=== PATIENT | female | born 1975 | race Caucasian/White ===

== ENCOUNTER 2019-08-19 12:37 | Emergency (ER) | payer OTHER, SELFPAY ==
[2019-08-19 12:56] VITALS: BP 113/58; PULSE 68; RESP 16; TEMP 36.4; O2SAT 99
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
== END 2019-08-19 13:46 | disposition home or self-care (01) ==
PROVIDERS: Emergency Provider Nurse Practitioner; PCP Family Medicine
DX: M54.5 Low back pain (principal); M06.9 Rheumatoid arthritis, unspecified; E89.0 Postprocedural hypothyroidism; Z85.850 Personal history of malignant neoplasm of thyroid; F17.200 Nicotine dependence, unspecified, uncomplicated
CPT/HCPCS: 99213; G0463

== ENCOUNTER 2020-03-10 12:07 | Emergency (ER) | payer BC, SELFPAY ==
--- NOTE | 2020-03-10 12:15 | ED.GENADULT ---
HPI - General Adult General Chief complaint: Chest Pain Stated complaint: chest pain Time Seen by Provider: 03/10/20 12:24 Source: patient Mode of arrival: ambulatory Limitations: no limitations History of Present Illness HPI narrative: 44-year-old female patient presents to the [facility] with complaints of left-sided chest pain that radiates to the left shoulder and wraps to the middle of the back. Patient states this chest pain is been going on for about 3 or 4 weeks now. Patient states she is also had some issues with palpitations here and there and did see her primary doctor about 3 weeks ago for the palpitations. Patient states at that time the doctor told her she had mitral valve prolapse. Patient states she did not get any further work-up and denies getting any type of echo or anything else at that time. Patient has had a stroke before in the past but on no current blood thinners. 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 Patient states she has been having a lot more stress recently. Patient states that her chest pain at this time is about a 2 out of 10 and feels more of an aching. Patient states she is also had a little bit of diarrhea but denies any nausea vomiting. Denies any fevers, body aches or chills. Patient denies any coughing or shortness of breath. Patient is states that this time she has been feeling more fatigued recently and states that time she feels like she is going to pass out. Related Data Allergies Allergy/AdvReac Type Severity Reaction Status Date / Time ciprofloxacin Allergy Unknown neurologic Verified 02/11/20 13:07 sulfamethizole Allergy Unknown Verified 02/11/20 13:07 Review of Systems Review of Systems: Narrative: CONSTITUTIONAL: Denies fever, chills, or sweats. EYES: Denies visual changes, redness, or discharge. ENT: Denies rhinorrhea, congestion, sore throat, or otalgia. CARDIOVASCULAR: Positive left-sided chest pain, positive palpitations, denies edema. RESPIRATORY: Denies cough or dyspnea. GASTROINTESTINAL: Denies abdominal pain, nausea, vomiting, positive diarrhea. GENITOURINARY: Denies dysuria or hematuria. SKIN: Denies rash or itching. MUSCULOSKELETAL: Denies back pain, joint pain, or myalgia. NEUROLOGIC: Denies headache, numbness, or weakness. PSYCHIATRIC: Denies anxiety or depression. PMFSH Past Medical History Medical History (Updated 03/10/20 @ 12:41 by GEM Rothman) Anxiety disorder Arthralgia Asthma Back pain Bronchitis Cancer Liver/thyroid/uterine Chronic insomnia CVA (cerebral vascular accident) Depression Endocrine disorder Thyroid mass Eustachian salpingitis, acute Gastrointestinal disorder Mass on liver, thyroid Heart murmur Hypoglycemia Primary generalized (osteo)arthritis Viral meningitis Surgical History Surgical History (Updated 03/10/20 @ 12:19 by GEM Rothman) H/O resection of liver H/O thyroidectomy H/O: hysterectomy Family History Family History Mother Patient's mother is in good health Father Patient's father is Grandparent Carcinoma of colon Family history of coronary artery disease, Onset Age: 71 Other Cerebrovascular accident Hypertension Social History Social History Social History: Smoking status: Former smoker Tobacco type: cigarettes Second hand tobacco smoke exposure: Yes Smoking end date: 10/25/19 Alcohol intake: current Substance use: never Substance use type: does not use Gender identity (if verbalized by the patient): Female Comments At the time of my signature I agree with nursing past medical history, surgical, social, and family history. There is no relevant family history pertinent to the presenting complaint. Exam Narrative: Exam Narrative: GENERAL: Well-appearing, well-nourished, and in no acu
[2020-03-10 12:17] VITALS: BP 132/79; PULSE 76; RESP 16; TEMP 36.9; O2SAT 98
--- NOTE | 2020-03-10 12:19 | ECG_ITS ---
Measurements Intervals [place] Rate: 65 P: 142 NE: 140 QRS: 204 QRSD: 105 T: 154 QT: 393 QTc: 409 Interpretive Statements SINUS RHYTHM LIMB LEAD REVERSAL DELAYED PRECORDIAL R/S TRANSITION BORDERLINE ECG Electronically Signed On 03-10-2020 13:08:05 CDT by Rafa Grossman D.O.
== END 2020-03-10 12:37 | disposition short-term general hospital (02) ==
PROVIDERS: Emergency Provider Nurse Practitioner Family; PCP Family Medicine
DX: R07.89 Other chest pain (principal); Z87.891 Personal history of nicotine dependence; Z86.73 Personal history of transient ischemic attack (TIA), and cerebral infarction without residual deficits; R01.1 Cardiac murmur, unspecified; J45.909 Unspecified asthma, uncomplicated; F41.9 Anxiety disorder, unspecified; F32.9 Major depressive disorder, single episode, unspecified; Z85.850 Personal history of malignant neoplasm of thyroid; Z85.05 Personal history of malignant neoplasm of liver; Z85.42 Personal history of malignant neoplasm of other parts of uterus
CPT/HCPCS: 93005; 99213; G0463

== ENCOUNTER 2020-03-10 12:52 | Observation (INO) | payer BC, SELFPAY ==
[2020-03-10] VITALS (9 sets, daily range): BP systolic 96–138; BP diastolic 60–82; PULSE 47–77; RESP 16–20; TEMP 36.4–36.7; O2SAT 96–100; BMI 32.9
--- NOTE | ~2020-03-10 | XR_ITS ---
EXAMINATION: XR chest 2V EXAM DATE: 03/10/2020 13:37 INDICATION: Mid sternal chest pain radiating to back for one week. TECHNIQUE: Frontal and lateral projections of the chest obtained and reviewed. Comparison is made to prior examination from 10/07/2018. FINDINGS: The lungs are clear. There are no pleural effusions. The cardiomediastinal silhouette is within normal limits. There is no pneumothorax suspected. The bones and soft tissues are unremarkab le. IMPRESSION: No acute cardiopulmonary findings. Reviewed, dictated and finalized at location A.
--- NOTE | 2020-03-10 13:09 | ECG_ITS ---
Measurements Intervals [place] Rate: 71 P: 53 FL: 150 QRS: -9 QRSD: 106 T: 47 QT: 400 QTc: 436 Interpretive Statements SINUS RHYTHM POSSIBLE LEFT ATRIAL ENLARGEMENT INCOMPLETE RIGHT BUNDLE BRANCH BLOCK POSSIBLE LEFT VENTRICULAR HYPERTROPHY DELAYED PRECORDIAL R/S TRANSITION MINIMAL Q WAVES- HIGH LATERAL LEADS BASELINE WANDER- V3-V6 BORDERLINE ECG Electronically Signed On 03-10-2020 13:37:59 CDT by Rafa Grossman D.O.
[2020-03-10 13:34] LABS: Basophils Percent Auto 0.2 % (0.2-1.2); Eosinophils Absolute Auto 0.1 K/mm3 (0-0.3); Eosinophils Percent Auto 1.9 % (0-4.4); Hematocrit 39.9 % (37.0-47.0); Hemoglobin 12.8 g/dL (12.0-15.0); Immature Granulocyte Absolute 0.02 K/mm3 (0.00-0.031); Immature Granulocyte Percent A 0.4 % (0-0.5); Lymphocytes Absolute Auto 2.24 K/mm3 (0.9-3.2); Lymphocytes Percent Auto 43.4 % (18.3-44.2); Mean Corpuscular HGB Conc 32.1 g/dl (32-36); Mean Corpuscular Hemoglobin 26.7 pg (26-34); Mean Corpuscular Volume 83.1 fl (80-100); Mean Platelet Volume 10.9 fl (7.4-10.4); Monocytes Absolute Auto 0.3 K/mm3 (0.1-0.6); Monocytes Percent Auto 6.4 % (2.6-8.5); Neutrophils Absolute Auto 2.5 K/mm3 (1.3-6.7); Neutrophils Percent Auto 47.7 % (45.5-73.1); Platelet Count Result 208 k/mm3 (150-375); Red Cell Distribution Width 14.9 % (11.5-14.5); White Blood Count 5.2 K/mm3 (4.5-10.0)
[2020-03-10 13:41] LABS: INR 1.1; Prothrombin Time 13.4 Seconds (11.1-14.7)
[2020-03-10 13:42] LABS: Partial Thromboplastin Time 27.4 SECONDS (22.3-36.8); Potassium 4.1 mmol/L (3.4-5.0)
[2020-03-10 13:50] LABS: Anion Gap 7 mmol/L (8-16); Blood Urea Nitrogen 7 mg/dL (7-17); Calcium 9.3 mg/dL (8.4-10.2); Carbon Dioxide 24 mmol/L (22-30); Chloride 109 mmol/L (98-107); Estimated CRCL calculation 115 ml/min; Estimated Glomerular Filt Rate > 60; Glucose 58 mg/dL (65-105); Sodium 140 mmol/L (137-145)
[2020-03-10 13:54] LABS: Troponin I < 0.012 ng/mL (0.000-0.034)
[2020-03-10 14:10] LABS: Glucose Point of Care 80 (65-105)
[2020-03-10] MEDS: ASPIRIN 81 MG CHEWABLE TABLET 324 MG PO (16:01)
--- NOTE | 2020-03-10 16:38 | ECG_ITS ---
Measurements Intervals [place] Rate: 61 P: 38 NV: 148 QRS: -7 QRSD: 110 T: 29 QT: 442 QTc: 448 Interpretive Statements SINUS RHYTHM DELAYED PRECORDIAL R/S TRANSITION VOLTAGE CRITERIA FOR LVH MINIMAL Q WAVES- HIGH LATERAL LEADS BORDERLINE ECG Electronically Signed On 03-10-2020 17:20:42 CDT by Rafa Grossman D.O.
--- NOTE | 2020-03-10 16:45 | ED.CHESTPAIN ---
HPI - Chest Pain General Chief Complaint: Chest Pain Stated Complaint: CP, from Urgent care Time Seen by Provider: 03/10/20 16:15 Source: patient Mode of arrival: ambulatory Limitations: no limitations History of Present Illness HPI narrative: This patient is a 44 year old female who presents for evaluation of left chest pain. She reports intermittently having left chest pain for 3 weeks. This pain is left axilla and radiates to left shoulder and back. This pain seems worse with stress and anxiety. She als reports having palpitations and fatigue. She also has some sob. She was evaluated by her PCP for her chest pain and she was diagnosed with mitral valve prolapse. She has continued to have fatigue so she came to ER. She also reports intermittent hypoglycemia. She is not a diabetic and she has not taken any medications. Related Data Home Medications Medication Instructions Recorded Confirmed fluoxetine 20 mg PO DAILY 03/10/20 03/10/20 melatonin 10 mg PO HS PRN 03/10/20 03/10/20 quetiapine [Seroquel] 100 mg PO DAILY 03/10/20 03/10/20 Allergies Allergy/AdvReac Type Severity Reaction Status Date / Time No Known Allergies Allergy Verified 03/10/20 15:59 Review of Systems Review of Systems: All systems reviewed & are unremarkable except as noted in HPI and below Constitutional: Constitutional: Denies chills, Reports fatigue and Denies fever(s) Cardiovascular: Cardiovascular: Reports chest pain Respiratory: Respiratory: Denies cough and Reports dyspnea Musculoskeletal: Musculoskeletal: Reports back pain PMFSH Past Medical History Medical History (Updated 03/11/20 @ 08:11 by Italia Lai MD) Anxiety disorder Arthralgia Asthma Back pain Bronchitis Cancer Liver/thyroid/uterine Chronic insomnia CVA (cerebral vascular accident) Depression Endocrine disorder Thyroid mass Eustachian salpingitis, acute Gastrointestinal disorder Mass on liver, thyroid Heart murmur Hypoglycemia Primary generalized (osteo)arthritis Viral meningitis Surgical History Surgical History (Updated 03/10/20 @ 12:19 by GEM Rothman) H/O resection of liver H/O thyroidectomy H/O: hysterectomy Social History Social History Social History: Smoking packs per day: 1 Smoking cigarettes per day: 20.0 Years smoked: 30 Smoking pack-years: 30.00 Smoking status: Former smoker Tobacco type: cigarettes Second hand tobacco smoke exposure: Yes Smoking end date: 10/25/19 Alcohol intake: current Substance use: never Substance use type: does not use Gender identity (if verbalized by the patient): Female Spiritual care concerns: No Exam Narrative: Exam Narrative: GENERAL: Well-appearing, well-nourished, and in no acute distress. HEAD: Normocephalic, atraumatic EYES: PERRLA and EOMI, conjunctiva clear without discharge EARS: TM's clear bilaterally without erythema or dullness NOSE: Nares clear, no rhinorrhea or epistaxis THROAT:Mucous membranes moist, Oropharynx normal without erythema, exudate, peritonsillar swelling or fluctuance NECK: Supple, without lymphadenopathy or mass RESPIRATORY: No respiratory distress, Airway patent, Respirations non-labored, Clear to auscultation without rales, rhonchi or wheeze HEART: Regular rate and rhythm. No murmur heard. Normal peripheral pulses. ABDOMEN: Soft, nontender, nondistended, normal active bowel sounds. No masses. No rebound or guarding, No organomegaly. EXTREMITIES: No edema, normal strength with full range of motion. SKIN: Warm, dry, normal color without rash NEURO: Alert and oriented x3. CN 2-12 grossly intact. No focal deficits. PSYCH: Normal mood and affect. Course Reevaluation(s) Reevaluation #1: I Discussed case with Dr. Stout who accepts to chest pain center. Date: 03/10/20 Time: 17:53 Vital Signs Vital signs: Vital Signs Temperature 97.6 F 09
[2020-03-10 16:46] LABS: Troponin I < 0.012 ng/mL (0.000-0.034)
[2020-03-10 17:19] LABS: D Dimer 0.39 ug/mL (<0.48)
[2020-03-10] MEDS: KETOROLAC 30 MG/ML VIAL (*BKC) IV PUSH (17:32)
[2020-03-10 19:21] LABS: Glucose Point of Care 72 (65-105)
[2020-03-10 20:02] LABS: Troponin I < 0.012 ng/mL (0.000-0.034)
--- NOTE | 2020-03-10 20:05 | ADMGEN ---
This patient, Shira Mortensen, was admitted to IMU Room 200-01. Patient/family oriented to hospital policies and general routines including ID bracelet, bed and alarms, visiting hours, pain management, procedures, bathroom and other care routines, personal items, smoking policy, room service/diet, and visiting hours. Valuables list has been completed. Information on how to activate the Rapid Response Team has been discussed. Patient/Family are encouraged to report perceived risks to care and to ask questions if they do not understand what they are told or what they should do. Report from [facility] arrived at [address] [place] [address] 03/10/2020
--- NOTE | 2020-03-10 22:42 | PC.NURSE ---
Pt requested a change in attending from [facility] to [facility]. I called Dr. Husain and he accepted pt at approx [phone]. I then called [facility] and notified admitting of new provider so the chart could reflect the changes.
[2020-03-10] MEDS: clonazePAM 0.5 MG TABLET PO (23:33)
[2020-03-10] MEDS: traMADol HCL 50 MG TABLET PO (23:34)
[2020-03-10] MEDS: MELOXICAM 7.5 MG TABLET 15 MG PO (23:34)
[2020-03-10] MEDS: QUEtiapine FUMARATE 100 MG TABLET PO (23:34)
[2020-03-10] MEDS: FLUoxetine HCL 20 MG CAPSULE PO (23:34)
[2020-03-10] MEDS: MELATONIN 5 MG TABLET 10 MG PO (23:35)
[2020-03-10 23:53] LABS: Free T4 Free Thyroxine Reflex 0.99 ng/dL (0.78-2.19)
[2020-03-11] VITALS (8 sets, daily range): BP systolic 102–152; BP diastolic 56–74; PULSE 53–73; RESP 14–18; TEMP 36.1–36.7; O2SAT 98–100
--- NOTE | 2020-03-11 | ECHO_ITS ---
Patient Info Name: Shira Mortensen Age: 44 years : 1975 Gender: Female Ht: 67 in Wt: 210 lbs BSA: 2.16 m2 HR: 50 bpm BP: 120 / 56 mmHg Heart Rhythm: Bradycardia Technical Quality: Good Exam Date: 03/11/2020 11:21 AM Exam Location: [facility] Patient Status: Inpatient Admit Date: 03/10/2020 Staff Ordering Physician: Santos Bacon MD Receptionist Airline Lounge: Vahid Hurtado RDCS Attending Provider: Julio Carrera MD Exam Type: CA echo doppler color flow Study Info Indications I34.1 - Nonrheumatic mitral (valve) prolapse R07.9 - Chest pain, unspecified Complete two-dimensional, color flow and Doppler transthoracic echocardiogram is performed. History/Risk Factors Chest pain; MVP(?), palpitations, murmur. Summary 1. Complete two-dimensional, color flow and Doppler transthoracic echocardiogram is performed. 2. Normal left ventricular size and thickness with good contractility of all segments. Visual estimate of the ejection fraction is 60-65%. No segmental wall motion abnormalities. Normal diastolic function. 3. Left atrial chamber dimension is mildly enlarged. 4. There is trace mitral valve regurgitation with no evidence of mitral valve prolapse. 5. No pulmonary hypertension, estimated pulmonary arterial systolic pressure is 24 mmHg. 6. Normal sinus rhythm. Left Ventricle Left ventricular chamber dimension is normal. Left ventricular systolic function is normal, estimated at 60-65%. There is no increased left ventricular wall thickness. Left ventricular septal wall motion is normal. The left ventricular diastolic function is normal. Right Ventricle Right ventricular chamber dimension is normal. Right ventricular systolic function is normal. Left Atria Left atrial chamber dimension is mildly enlarged. Right Atria Right atrial chamber dimension is normal. Aortic Valve The aortic valve is trileaflet. There is no aortic valve sclerosis. There is no aortic valve stenosis. There is no aortic valve regurgitation. Pulmonic Valve The pulmonic valve is normal. There is no pulmonic valve stenosis. There is no pulmonic regurgitation. Mitral Valve The mitral valve has normal leaflets. There is no mitral valve stenosis. There is trace mitral valve regurgitation with no evidence of mitral valve prolapse. Tricuspid Valve The tricuspid valve leaflets are normal. There is no significant tricuspid valve stenosis. There is trace tricuspid valve regurgitation. No pulmonary hypertension, estimated pulmonary arterial systolic pressure is 24 mmHg. Pericardium/Pleural The pericardium appears normal. There is no pericardial effusion. Inferior Vena Cava Normal inferior vena cava with >50% collapse upon inspiration consistent with Empty right atrial pressure, 5 mmHg. Aorta The aortic root size at the sinus of Valsalva is normal. The prox ascending aorta size is normal. Left Ventricular Outflow Tract Name Value Normal LVOT 2D LVOT Diameter 2.1 cm LVOT Doppler LVOT Peak Gradient 3 mmHg LVOT Mean Gradient 2 mmHg
[2020-03-11] MEDS: LEVOTHYROXINE SODIUM 112 MCG TABLET PO (05:50)
--- NOTE | 2020-03-11 08:21 | PM.IMHP ---
H&P: HPI History of Present Illness Date/Time: 03/11/20 08:21 Chief complaint: left chest pain Narrative: Date of service-03/11/2020 Chief complaint: Chest pain; palpitations HPI: Shira Mortensen is a 44 year old female with past medical history of anxiety/depression, CA thyroid status post thyroidectomy,? CA liver, Ca uterus status post surgeries; history of tobacco abuse. Patient was admitted to the hospital with complaints of chest discomfort and palpitations. She states that she started having palpitations about 6 months ago. She would get several episodes of transient palpitations throughout the day without associated symptoms initially. For last 3-4 weeks, patient states that she has been experiencing episodes of dizziness without syncope; tingling sensation in the arms, decreased appetite and fatigue. These symptoms are happening every other day on average. About a week ago, patient states that started having left inframammary discomfort which she describes as squeezing sensation with radiation to the back in a bandlike fashion. She states that symptoms started after a long day at work. She works as an ER nurse. The symptoms would get worse with deep inspiration. Her symptoms lasted for several hours. She has been also experiencing dyspnea on exertion, unable to quantify. Patient denies any known prior cardiac history. She states that she was seen by primary care physician and was diagnosed with what she describes as mitral valve prolapse. She does not recall having any echocardiogram done in the past. Patient was family history of fatal MA in his father when he was in 30s. Patient used to be a smoker, quit tobacco about 6 months ago. EKG on this admission which I personally evaluated showed sinus rhythm, no acute ST segment abnormality. Serial EKG did not show any significant evolving changes. Serial troponins are negative. D-dimer is unremarkable. Chest x-ray is unremarkable. TSH is low at 0.410, free T4 is normal at 0.99. Review of Systems Review of Systems: Narrative: General: Negative for fever, chills, fatigue Psychological: Positive for anxiety, depression Ophthalmic: negative for loss of vision ENT: Negative for epistaxis, headaches Allergy and immunology: Negative for hives, nasal congestion Hematologic and lymphatic: Negative for overt bleeding problems Endocrine: Negative for hot flashes, palpitations Respiratory: Negative for cough, hemoptysis Cardiovascular: Positive for chest pain, shortness of breath, mild leg swelling, palpitations, dizziness, negative for syncope Gastrointestinal: Negative for abdominal pain, nausea, vomiting, positive for decreased appetite Musculoskeletal: Negative for myalgia, joint pains Neurological: Negative for weakness Dermatological: Negative for rash, skin discoloration PMFSH Past Medical History Medical History Anxiety disorder Arthralgia Asthma Back pain Bronchitis Cancer Liver/thyroid/uterine Chronic insomnia CVA (cerebral vascular accident) Depression Endocrine disorder Thyroid mass Eustachian salpingitis, acute Gastrointestinal disorder Mass on liver, thyroid Heart murmur Hypoglycemia Primary generalized (osteo)arthritis Viral meningitis Surgical History Surgical History H/O resection of liver H/O thyroidectomy H/O: hysterectomy Family History Family History Mother Patient's mother is in good health Father Patient's father is Grandparent Carcinoma of colon Family history of coronary artery disease, Onset Age: 71 Other Cerebrovascular accident Hypertension Social History Social History Social History: Smoking packs per day: 1 Smoking cigarettes per day: 20.0 Years smoked: 30 Smoking pa
== END 2020-03-11 15:05 | disposition home or self-care (01) ==
LOC: ANHED 18:03 → ANHIMU 18:23
PROVIDERS: Admitting Provider Specialist; Emergency Provider General Practice; PCP Family Medicine; Visit Provider Internal Medicine Cardiovascular Disease
DX: R07.9 Chest pain, unspecified (principal); R00.2 Palpitations; M25.512 Pain in left shoulder; Z86.73 Personal history of transient ischemic attack (TIA), and cerebral infarction without residual deficits; M15.0 Primary generalized (osteo)arthritis; J45.909 Unspecified asthma, uncomplicated; F41.9 Anxiety disorder, unspecified; Z87.891 Personal history of nicotine dependence
CPT/HCPCS: 36415; 71046; 80048; 82948; 84439; 84443; 84480; 84484; 85025; 85380; 85610; 85730; 93005; 93306; 96374; 99285; A9270; G0378; G0379; J1885

== ENCOUNTER 2020-06-11 11:48 | Outpatient (CLI) | payer BC, SELFPAY ==
[2020-06-11 12:20] LABS: Rheumatoid Factor < 8.6 IU/ML (<12)
[2020-06-11 12:32] LABS: Erythrocyte Sedimentation Rate 16 mm/hr (0-20)
[2020-06-11 12:48] LABS: Thyroid Stimulating Hormone 0.187 uIU/mL (0.465-4.680)
[2020-06-11 12:53] LABS: Free T4 Free Thyroxine 0.96 ng/mL (0.78-2.19)
[2020-06-15 10:29] LABS: Anti Cyclic Citrullinated Pept <16 Units (<20)
== END 2020-06-11 11:49 | disposition home or self-care (01) ==
LOC: ANHLAB 11:50
PROVIDERS: PCP Family Medicine; Visit Provider Physician Assistant
DX: Z01.84 Encounter for antibody response examination (principal); E03.9 Hypothyroidism, unspecified; M25.50 Pain in unspecified joint
CPT/HCPCS: 36415; 84439; 84443; 85652; 86200; 86430

== ENCOUNTER 2020-10-13 11:20 | Outpatient (CLI) | payer BC, SELFPAY ==
[2020-10-13 12:51] LABS: Total Triiodothyronine (T3) 0.89 NG/ML (0.97-1.69)
[2020-10-13 13:05] LABS: Free T4 Free Thyroxine 0.78 ng/mL (0.78-2.19)
== END 2020-10-13 11:21 | disposition home or self-care (01) ==
PROVIDERS: PCP Family Medicine; Visit Provider Physician Assistant
DX: E03.9 Hypothyroidism, unspecified (principal)
CPT/HCPCS: 36415; 84439; 84443; 84480

== ENCOUNTER 2021-01-02 10:44 | Outpatient (CLI) | payer BC, SELFPAY ==
[2021-01-02 13:33] LABS: Anion Gap 9 mmol/L (8-16); Blood Urea Nitrogen 12 mg/dL (7-17); Calcium 9.9 mg/dL (8.4-10.2); Carbon Dioxide 26 mmol/L (22-30); Chloride 105 mmol/L (98-107); Estimated Glomerular Filt Rate > 60; Glucose 84 mg/dL (65-105); Potassium 4.7 mmol/L (3.4-5.0); Sodium 140 mmol/L (137-145)
[2021-01-02 14:06] LABS: Hemoglobin A1C 5.5 % (<5.7)
== END 2021-01-02 10:45 | disposition home or self-care (01) ==
LOC: ANHLAB 10:45
PROVIDERS: PCP Family Medicine; Visit Provider Family Medicine
DX: R73.09 Other abnormal glucose (principal); Z85.850 Personal history of malignant neoplasm of thyroid
CPT/HCPCS: 36415; 80048; 83036; 83519

== ENCOUNTER 2021-09-14 11:58 | Outpatient (CLI) | payer BC, SELFPAY ==
[2021-09-14 12:22] LABS: Add Urine Microscopic? NO; Appearance Urine Clear (Clear); Bilirubin Urine Negative (Negative); Blood Urine Negative (Negative); Color Urine Straw (Yellow); Glucose Urine UA Negative (Negative); Ketones Urine Negative (Negative); Leukocyte Esterase Ur Negative LEU/UL (Negative); Nitrate Urine Negative (Negative); Protein Urine Negative (Negative); Specific Grav Ur 1.005 (1.001-1.035); Urobilinogen Urine Negative mg/dL (<2.0)
== END 2021-09-14 11:59 | disposition home or self-care (01) ==
LOC: ANHLAB 12:02
PROVIDERS: PCP Family Medicine; Visit Provider Nurse Practitioner Gerontology
DX: R30.0 Dysuria (principal)
CPT/HCPCS: 81003

== ENCOUNTER 2021-09-15 12:48 | Emergency (ER) | payer BC, SELFPAY ==
--- NOTE | ~2021-09-15 | CT_ITS ---
EXAMINATION: CT abdomen pelvis w con DATE: 09/15/2021 13:49 INDICATION: Generalized abdominal pain. Bilateral flank pain and dysuria. TECHNIQUE: Computed tomography (CT) of the abdomen and pelvis was performed with 100 mL Omnipaque-350 intravenous contrast. Automated exposure control and iterative reconstruction technique were employe d. The dose-length product was 1036.07 mGy-cm. COMPARISON: 11/29/2015 FINDINGS: Lung bases are clear. Heart size is normal. No pericardial or pleural effusion. Multiple subphrenic s urgical clips along the anterior dome of the liver. 1.2 cm hepatic cyst. Gallbladder, pancreas, splee n, bilateral adrenal glands and left kidney are normal. A couple subcentimeter likely cysts in the ri ght kidney. Small calcified appendicolith within the midportion of the normal appendix with no periap pendiceal inflammatory stranding to suggest acute appendicitis. Small bowel is normal. There is wall thickening throughout the sigmoid colon consistent with a distal colitis. No pneumatosis. A few sigmo id diverticula without adjacent inflammatory stranding to suggest diverticulitis. Minimal ascites in the pelvis. No abscess or free intraperitoneal gas. Bladder and bilateral adnexa are unremarkable. Th e uterus is not identified and has likely been surgically resected. No pathologically enlarged abdomi nal or pelvic lymphadenopathy. Lower lumbar spondylosis with severe disc height loss at L5-S1 and sev ere bilateral facet osteoarthritis at L4-L5 and L5-S1. IMPRESSION: 1. Wall thickening throughout the sigmoid colon consistent with colitis which could be infectious, in flammatory or less likely ischemic in etiology. Reviewed, dictated and finalized at location A. IMPRESSION: 1. Wall thickening throughout the sigmoid colon consistent with colitis which c ould be infectious, inflammatory or less likely ischemic in etiology.
[2021-09-15 12:52] VITALS: BP 144/81; PULSE 84; RESP 14; TEMP 36.4; O2SAT 100
[2021-09-15 13:15] LABS: Basophils Percent Auto 0.1 % (0.2-1.2); Eosinophils Absolute Auto 0.1 K/mm3 (0-0.3); Hematocrit 41.1 % (37.0-47.0); Hemoglobin 12.7 g/dL (12.0-15.0); Immature Granulocyte Absolute 0.04 K/mm3 (0.00-0.031); Immature Granulocyte Percent A 0.6 % (0-0.5); Lymphocytes Absolute Auto 2.52 K/mm3 (0.9-3.2); Lymphocytes Percent Auto 35.8 % (18.3-44.2); Mean Corpuscular HGB Conc 30.9 g/dl (32-36); Mean Corpuscular Hemoglobin 27.1 pg (26-34); Mean Corpuscular Volume 87.8 fl (80-100); Mean Platelet Volume 11.4 fl (7.4-10.4); Monocytes Absolute Auto 0.4 K/mm3 (0.1-0.6); Monocytes Percent Auto 5.4 % (2.6-8.5); Neutrophils Percent Auto 56.1 % (45.5-73.1); Platelet Count Result 204 k/mm3 (150-375); Red Blood Count 4.68 M/mm3 (4.2-5.4); Red Cell Distribution Width 15.6 % (11.5-14.5)
[2021-09-15 13:18] LABS: Add Urine Microscopic? YES; Appearance Urine Clear (Clear); Bilirubin Urine Negative (Negative); Blood Urine Negative (Negative); Color Urine Amber (Yellow); Glucose Urine UA Negative (Negative); Ketones Urine Negative (Negative); Leukocyte Esterase Ur Negative LEU/UL (Negative); Mucus Urine Rare /lpf; Nitrate Urine Positive (Negative); Protein Urine Negative (Negative); Specific Grav Ur 1.015 (1.001-1.035); Squamous Epithelial Cell Urine Rare /hpf (Few); WBC Urine 0-3 /hpf
[2021-09-15 13:24] LABS: Alanine Aminotransferase 28 U/L (4-35); Albumin Level 4.4 g/dL (3.5-5.1); Alkaline Phosphatase 83 U/L (38-126); Anion Gap 6 mmol/L (8-16); Aspartate Amino Transferase 26 U/L (14-36); Bilirubin,Total 0.3 mg/dL (0.2-1.3); Blood Urea Nitrogen 10 mg/dL (7-17); Calcium 8.8 mg/dL (8.4-10.2); Carbon Dioxide 27 mmol/L (22-30); Chloride 105 mmol/L (98-107); Estimated CRCL calculation 97 ml/min; Estimated Glomerular Filt Rate > 60; Glucose 124 mg/dL (65-110); Potassium 3.6 mmol/L (3.4-5.0); Sodium 138 mmol/L (137-145)
--- NOTE | 2021-09-15 13:32 | ED.ABDPAIN ---
HPI - Abdominal Pain General Chief Complaint: Abdominal Pain Stated Complaint: flank pain Time Seen by Provider: 09/15/21 13:01 History of Present Illness HPI narrative: 46 y/o female presents to the ER today for generalized abdominal pain and bilatera flank pain for the past few days. She has been having some problems with urinary frequency over the past several weeks. She says that she is starting to have some dysuria and is having a hard time emptying her bladder. Her UA was done yesterday in our lab and was normal. We sent a UA today from triage but patient took AZO prior to coming so it is bright orange. She had some chills over the weekend. No fever. She does not have any focal area of pain. No vomiting. She has had some diarrhea for the past 2 days. She complains of abdominal bloating. She says that she is just not feeling well. Related Data Home Medications Medication Instructions Recorded Confirmed melatonin 10 mg PO HS PRN 03/10/20 03/05/21 Allergies Allergy/AdvReac Type Severity Reaction Status Date / Time No Known Allergies Allergy Verified 09/15/21 12:58 Review of Systems Constitutional: Constitutional: Reports chills, Denies fatigue and Denies fever(s) Eyes: Eyes: Denies change in vision ENT: Denies dysphagia, Denies dizziness and Denies sore throat Cardiovascular: Cardiovascular: Denies chest pain, Denies rapid heart rate and Denies radiating jaw, neck or arm pain Respiratory: Respiratory: Denies cough, Denies dyspnea and Denies wheezing Gastrointestinal: Gastrointestinal: Reports abdominal pain, Reports bloating, Reports diarrhea, Denies nausea and Denies vomiting Genitourinary: Genitourinary: Reports nocturia, Reports dysuria and Reports flank pain Musculoskeletal: Musculoskeletal: Denies back pain, Denies myalgias and Denies arthralgias Neurologic: Denies vertigo, Denies dizziness, Denies syncope and Denies headache(s) Psychiatric: Psychiatric: Reports no additional psychiatric complaints Endocrine: Endocrine: Reports no additional endocrine complaints Hematologic/Lymphatic: Hematologic/Lymphatic: Reports no additional hematologic/lymphatic complaints [facility] Past Medical History Medical History (Updated 09/15/21 @ 15:23 by Rossana Mistry APRN) Anxiety disorder Arthralgia Asthma Back pain Bronchitis Cancer Liver/thyroid/uterine Chronic insomnia CVA (cerebral vascular accident) Depression Endocrine disorder Thyroid mass Eustachian salpingitis, acute Gastrointestinal disorder Mass on liver, thyroid Heart murmur Hypoglycemia Primary generalized (osteo)arthritis Viral meningitis Surgical History Surgical History H/O resection of liver H/O thyroidectomy H/O: hysterectomy Family History Family History Mother Patient's mother is in good health Rheumatoid arthritis Father Patient's father is Grandparent Carcinoma of colon Family history of coronary artery disease, Onset Age: 71 Rheumatoid arthritis Other Cerebrovascular accident Hypertension Social History Social History Social History: Smoking packs per day: 1 Smoking cigarettes per day: 20.0 Years smoked: 30 Smoking pack-years: 30.00 Smoking status: Former smoker Tobacco type: cigarettes Second hand tobacco smoke exposure: Yes Smoking end date: 10/25/19 Alcohol intake: current Alcohol use details: Pt have one glass of wine, once a month. Substance use: never Substance use type: does not use Gender identity (if verbalized by the patient): Female Sexual Orientation (if Verbalized by the Patient): Straight or Heterosexual Spiritual care concerns: No Exam Const: General: healthy appearing, no acute distress and alert Orientation/consciousness: patie
[2021-09-15] MEDS: SODIUM CHLORIDE 0.9% IV 1,000 ML 999 ML IV CONT (14:14)
[2021-09-15 14:19] LABS: Lipase 72 U/L (23-300)
== END 2021-09-15 15:53 | disposition home or self-care (01) ==
PROVIDERS: Emergency Medicine; Emergency Provider Nurse Practitioner Family; PCP Family Medicine
DX: K52.9 Noninfective gastroenteritis and colitis, unspecified (principal); R35.0 Frequency of micturition; J45.909 Unspecified asthma, uncomplicated; Z85.42 Personal history of malignant neoplasm of other parts of uterus; Z85.850 Personal history of malignant neoplasm of thyroid; Z85.05 Personal history of malignant neoplasm of liver; Z86.73 Personal history of transient ischemic attack (TIA), and cerebral infarction without residual deficits; E89.0 Postprocedural hypothyroidism; Z87.891 Personal history of nicotine dependence; Z90.49 Acquired absence of other specified parts of digestive tract
CPT/HCPCS: 36415; 74177; 80053; 81001; 81025; 83690; 85025; 96360; 99284; J7030; Q9967

== ENCOUNTER 2022-06-22 19:32 | Emergency (ER) | payer SELFPAY ==
[2022-06-22 19:44] VITALS: BP 129/78; PULSE 77; RESP 20; TEMP 36.5; O2SAT 99
[2022-06-22 20:43] LABS: Basophils Percent Auto 0.2 % (0.2-1.2); Eosinophils Absolute Auto 0.2 K/mm3 (0-0.3); Eosinophils Percent Auto 2.6 % (0-4.4); Hematocrit 37.8 % (37.0-47.0); Hemoglobin 12.1 g/dL (12.0-15.0); Immature Granulocyte Absolute 0.01 K/mm3 (0.00-0.031); Immature Granulocyte Percent A 0.2 % (0-0.5); Lymphocytes Absolute Auto 2.59 K/mm3 (0.9-3.2); Lymphocytes Percent Auto 42.9 % (18.3-44.2); Mean Corpuscular Hemoglobin 26.7 pg (26-34); Mean Corpuscular Volume 83.4 fl (80-100); Monocytes Absolute Auto 0.5 K/mm3 (0.1-0.6); Monocytes Percent Auto 8.4 % (2.6-8.5); Neutrophils Absolute Auto 2.8 K/mm3 (1.3-6.7); Neutrophils Percent Auto 45.7 % (45.5-73.1); Platelet Count Result 206 k/mm3 (150-375); Red Blood Count 4.53 M/mm3 (4.2-5.4); Red Cell Distribution Width 14.2 % (11.5-14.5)
[2022-06-22 20:44] LABS: Appearance Urine Clear (Clear); Bilirubin Urine 1+ (Negative); Blood Urine Negative (Negative); Glucose Urine UA Trace mg/dL (Negative); Ketones Urine Trace mg/dL (Negative); Leukocyte Esterase Ur Negative LEU/UL (Negative); Nitrate Urine Positive (Negative); Protein Urine 1+ mg/dL (Negative)
[2022-06-22 20:46] LABS: Add Urine Microscopic? YES; Color Urine Dark Orange (Yellow)
[2022-06-22 21:01] LABS: Alanine Aminotransferase 26 U/L (6-35); Albumin Level 4.4 g/dL (3.5-5.1); Alkaline Phosphatase 84 U/L (38-126); Anion Gap 7 mmol/L (8-16); Aspartate Amino Transferase 29 U/L (14-36); Bilirubin,Total 0.4 mg/dL (0.2-1.3); Blood Urea Nitrogen 11 mg/dL (7-17); Carbon Dioxide 27 mmol/L (22-30); Chloride 106 mmol/L (98-107); Estimated CRCL calculation 104 ml/min; Estimated Glomerular Filt Rate > 60; Glucose 95 mg/dL (65-110); Potassium 3.9 mmol/L (3.4-5.0); Sodium 140 mmol/L (137-145)
[2022-06-22 21:12] LABS: Squamous Epithelial Cell Urine Occasional /hpf (Few); WBC Urine 0-3 /hpf
--- NOTE | 2022-06-22 21:46 | PC.NURSE ---
Pt reports she feels better and has her mom waiting with her in the ED and does not want to wait for room. Pt states I feel better and I'm going to call Dr. Senior tomorrow. Pt is A/O x 4, no distress, skin pwd and gait is steady.
== END 2022-06-22 21:46 | disposition left against medical advice (07) ==
PROVIDERS: Emergency Provider Emergency Medicine; PCP Family Medicine
DX: R10.9 Unspecified abdominal pain (principal)
CPT/HCPCS: 36415; 80053; 81001; 81025; 85025; 99199

== ENCOUNTER 2023-08-02 10:16 | Emergency (ER) | payer BC, SELFPAY ==
--- NOTE | ~2023-08-02 | CT_ITS ---
EXAMINATION: CT lumbar spine wo con DATE: 08/02/2023 12:50 INDICATION: Low back pain. Left leg pain. TECHNIQUE: Computed tomography (CT) of the lumbar spine was performed without intravenous contrast. A utomated exposure control and iterative reconstruction technique were employed. The dose-length produ ct was 1496.63 mGy-cm. COMPARISON: None FINDINGS: There is 6 degrees levocurvature of lumbar spine. There is 3 mm anterolisthesis of L4 on L5 . There is mildly decreased disc height at L3-L4 and L4-L5 and severely decreased disc height at L5-S 1. The following disc levels are specifically discussed: L1-L2: The disc does not extend beyond the endplate margin. There is moderate right and severe left f acet joint osteoarthritis. There is no neural foraminal stenosis. There is no central canal stenosis. L2-L3: The disc does not extend beyond the endplate margin. There is moderate bilateral facet joint o steoarthritis. There is no neural foraminal stenosis. There is no central canal stenosis. L3-L4: The disc is bulging. There is mild bilateral facet joint osteoarthritis. There is mild bilater al neural foraminal stenosis. There is mild central canal stenosis. L4-L5: The disc is bulging. There is severe bilateral facet joint osteoarthritis. There is mild bilat eral neural foraminal stenosis. There is mild central canal stenosis. L5-S1: The disc is bulging. There is severe bilateral facet joint osteoarthritis. There is mild bilat eral neural foraminal stenosis. There is mild central canal stenosis. IMPRESSION: 1. Severe lower lumbar spondylosis. Reviewed, dictated and finalized at location A. ALT PAVER OPERATOR
[2023-08-02 10:18] VITALS: BP 127/104; PULSE 65; RESP 16; TEMP 36.5; O2SAT 100
--- NOTE | 2023-08-02 12:28 | ED.GENADULT ---
HPI - General Adult General Chief complaint: Unspecified Stated complaint: RA flare up, starting to have numbness in legs Time Seen by Provider: 08/02/23 12:10 History of Present Illness HPI narrative: Patient is a 48-year-old female with a history of rheumatoid arthritis, thyroid/uterine/liver cancer presenting with lower back pain. Patient states that she has chronic lower back pain related to degenerative disease and her RA. States that it is relatively controlled with regular ibuprofen use. Over the last 3 days she has had worsening of her lower back pain to the point that she can not work. States that she only has relief in her pain when she lays down. States that she feels like she has been dragging her left leg. There is also an area of numbness right around her coccyx she states. No bladder or bowel incontinence, saddle anesthesia, fevers. No further complaints. Related Data Home Medications Medication Instructions Recorded Confirmed melatonin 10 mg tablet 10 mg PO HS PRN Insomnia 03/10/20 04/25/23 Allergies Allergy/AdvReac Type Severity Reaction Status Date / Time No Known Allergies Allergy Verified 08/02/23 10:59 Review of Systems Review of Systems: All systems reviewed & are unremarkable except as noted in HPI and below PMFSH Past Medical History Medical History (Updated 08/03/23 @ 00:03 by Background Daagustina) Anxiety disorder Arthralgia Asthma Back pain Bronchitis Cancer Liver/thyroid/uterine Chronic insomnia CVA (cerebral vascular accident) Depression Endocrine disorder Thyroid mass Eustachian salpingitis, acute Gastrointestinal disorder Mass on liver, thyroid Heart murmur Hypoglycemia Primary generalized (osteo)arthritis Viral meningitis Surgical History Surgical History H/O resection of liver H/O thyroidectomy H/O: hysterectomy Family History Family History Mother Patient's mother is in good health Rheumatoid arthritis Father Patient's father is Grandparent Carcinoma of colon Family history of coronary artery disease, Onset Age: 71 Rheumatoid arthritis Other Cerebrovascular accident Hypertension Social History Social History Social History: Smoking packs per day: 1 Smoking cigarettes per day: 20.0 Years smoked: 30 Smoking pack-years: 30.00 Smoking status: Former smoker Tobacco type: cigarettes Second hand tobacco smoke exposure: Yes Smoking end date: 10/25/19 Alcohol intake: current Alcohol use details: Pt have one glass of wine, once a month. Substance use: never Substance use type: does not use Living arrangements: with family Occupation/Education: occupation Gender identity (if verbalized by the patient): Female Sexual Orientation (if Verbalized by the Patient): Straight or Heterosexual Spiritual care concerns: No Exam Narrative: GENERAL: Uncomfortable appearing lying on her side in bed, pleasant cooperative HEAD: Normocephalic, atraumatic. EYES: PERRLA and EOMI. ENT: grossly unremarkable NECK: Supple. BACK: +tenderness with palpation over lower lumbar spine/upper sacrum CHEST: No respiratory distress. HEART: Regular rate and rhythm EXTREMITIES: Normal range of motion. No edema. SKIN: Warm, dry, no rash. NEURO: No focal deficits. Alert and oriented x3. PSYCH: Normal mood and affect. Course Vital Signs Vital signs: Vital Signs Temperature 97.7 F 08/02/23 10:18 Pulse Rate 65 08/02/23 10:18 Respiratory Rate 16 08/02/23 10:18 Blood Pressure 127/104 H 08/02/23 10:18 Pulse Oximetry 100 08/02/23 10:18 Oxygen Delivery Room Air 08/02/23 10:18 Temperature 97.7 F 08/02/23 10:18 Pulse Rate 69 08/02/23 15:01 Respiratory Rate 20 08/02/23 15:01 Blood Pressur
[2023-08-02] MEDS: HYDROcodone/acetaminophen (*CRX) 5-325 MG TABLET 1 TAB PO (12:34)
[2023-08-02] MEDS: KETOROLAC 30 MG/ML VIAL (*BKC) IM (12:35)
[2023-08-02] MEDS: predniSONE 20 MG TABLET 60 MG PO (13:53)
[2023-08-02 15:01] VITALS: BP 128/98; PULSE 69; RESP 20; O2SAT 100
== END 2023-08-02 15:03 | disposition home or self-care (01) ==
PROVIDERS: Emergency Provider Emergency Medicine; PCP Family Medicine
DX: M54.50 Low back pain, unspecified (principal); M47.816 Spondylosis without myelopathy or radiculopathy, lumbar region; G89.29 Other chronic pain; F41.9 Anxiety disorder, unspecified; J45.909 Unspecified asthma, uncomplicated; F32.A Depression, unspecified; M06.9 Rheumatoid arthritis, unspecified
CPT/HCPCS: 72131; 96372; 99284; A9270; J1885; J7512

== ENCOUNTER 2025-02-11 19:06 | Emergency (ER) | payer SELFPAY ==
--- NOTE | ~2025-02-11 | XR_ITS ---
EXAMINATION: XR chest 2V 02/11/2025 19:40 INDICATION: Chest pain and shortness of breath PROCEDURE: 2 view chest COMPARISON: Comparison to multiple prior studies sequentially, with oldest reviewed study dated 04/27. FINDINGS: The lungs are clear. The cardiomediastinal silhouette is within normal limits. There are no pleural effusions. There is no pneumothorax suspected. IMPRESSION: 1: NO ACUTE CARDIOPULMONARY DISEASE. Reviewed, dictated and finalized at location A.
--- NOTE | 2025-02-11 19:09 | ECG_ITS ---
Test Date: 2025-02-11 19:16:45 Measurements Intervals [place] Rate: 71 P: 30 [place]: 157 QRS: -13 QRSD: 110 T: 38 QT: 431 QTc: 471 Interpretive Statements SINUS RHYTHM VOLTAGE CRITERIA FOR LVH MINIMAL Q WAVES- HIGH LATERAL LEADS BORDERLINE T WAVE ABNORMALITY- ANTERIOR LEADS BASELINE ARTIFACT- I, II, III, AVR, AVL, AVF BORDERLINE ECG No previous ECG available for comparison Electronically Signed On 02-11-2025 19:51:45 CDT by Rafa Grossman D.O.
[2025-02-11 19:19] VITALS: BP 107/64; PULSE 72; RESP 19; TEMP 36.5; O2SAT 99
[2025-02-11 19:39] LABS: Hematocrit 36.6 % (37.0-47.0); Hemoglobin 11.4 g/dL (12.0-15.0); Immature Granulocyte Percent A 0.2 % (0-0.5); Lymphocytes Absolute Auto 1.86 K/mm3 (0.9-3.2); Mean Corpuscular HGB Conc 31.1 g/dl (32-36); Mean Corpuscular Hemoglobin 26.0 pg (26-34); Mean Corpuscular Volume 83.6 fl (80-100); Nucleated Red Blood Cells Absolute Auto 0.000 K/mm3 (0.0-0.012); Nucleated Red Blood Cells Perc 0.0 % (0.0-0.2); Platelet Count Result 188 k/mm3 (150-375); Red Blood Count 4.38 M/mm3 (4.2-5.4); White Blood Count 4.5 K/mm3 (4.5-10.0)
[2025-02-11 19:49] LABS: Alanine Aminotransferase 33 U/L (6-35); Albumin Level 4.2 g/dL (3.5-5.1); Alkaline Phosphatase 97 U/L (38-126); Anion Gap 10 mmol/L (4-12); Aspartate Amino Transferase 33 U/L (14-36); Bilirubin,Total 0.3 mg/dL (0.2-1.3); Blood Urea Nitrogen 13 mg/dL (7-17); Calcium 9.3 mg/dL (8.4-10.2); Carbon Dioxide 23 mmol/L (22-30); Chloride 104 mmol/L (98-107); Estimated CRCL calculation 108 ml/min; Estimated Glomerular Filt Rate > 60; Glucose 227 mg/dL (65-110); Lipase 32 U/L (23-300); Potassium 3.6 mmol/L (3.4-5.0); Sodium 137 mmol/L (137-145); Total Protein 6.7 g/dL (6.3-8.2)
[2025-02-11 19:52] LABS: INR 1.1; Partial Thromboplastin Time 28.4 Seconds (22.3-36.8); Prothrombin Time 13.8 Seconds (11.1-14.7)
[2025-02-11 20:00] LABS: Troponin I < 0.012 ng/mL (0.000-0.034)
--- NOTE | 2025-02-11 23:51 | ECG_ITS ---
Test Date: 2025-02-11 23:51:41 Measurements Intervals [place] Rate: 71 P: 47 [place]: 162 QRS: -14 QRSD: 114 T: 40 QT: 413 QTc: 451 Interpretive Statements SINUS RHYTHM INTRAVENTRICULAR CONDUCTION DELAY DELAYED PRECORDIAL R/S TRANSITION VOLTAGE CRITERIA FOR LVH MINIMAL Q WAVES- HIGH LATERAL LEADS BORDERLINE T WAVE ABNORMALITY- ANTERIOR LEADS BORDERLINE ECG Compared to ECG 02/11/2025 19:16:45 NO SIGNIFICANT CHANGE Electronically Signed On 02-12-2025 06:17:13 CDT by Rafa Grossman D.O.
[2025-02-11 23:56] VITALS: BP 102/68; PULSE 72; RESP 16; O2SAT 97
--- NOTE | 2025-02-11 23:56 | PC.NURSE ---
While collecting 3hr troponin, pt reports she would like her IV removed so she can go home and that she would watch labwork on portal and come back if needed. Pt educated on importance of staying and beign seen by provider or waiting until 3 hour resulted, but decided she would like to leave. Pt ambulatory out of dept w steady gait. Pt VS updated and stable prior to leaving ER.
--- OUTSIDE RECORDS SUMMARY | 2025-02-12 00:01 | XMS_ITS | Encounter Summary ---
Author Organization [facility] Healthcare Address [address] [place] [address] Care Team Providers Care Computer Networker Name Role Phone Nguyen Celaya DO Primary Care Provider [phone] Encounter Details Date Type Department Care Team (Late st Contact Info) Description 02/11/2025 Telephone [facility] Family Medicine at [address] [id number] Nguyen Celaya DO [address] [place] [id number] Social History Tobacco Use Types Packs/Day Years Used Date Smoking Tobacco: Former Cigarettes Q uit: 08/2019 Smokeless Tobacco: Never Alcohol Use Standard Drinks/Week Comments Yes 3 (1 standard drink = 0.6 oz pur e alcohol) once weekly AUDIT-C Answer Date Recorded Q1: How often do you have a drink containing alcohol? Never 11/07/2024 Q2: How many drinks containi ng alcohol do you have on a typical day when you are drinking? Patient does not drink Q3: How often do you have si x or more drinks on one occasion? Never 11/07/2024 PHQ-2 Answer Date Recorded PHQ-2 Total Score (If total score is 3 or more points, staff should administer the PHQ-9) 0 10/31/2024 Personal Safety Answer Date Recorded Have you ever been in or are you currently in a harmful physical or emotional relationship or is someone making you feel afraid or unsafe? 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 Also remind her, if she feels that she may be a harm to herself or to others to go to the nearest emergency room. Let her know that referrals to [facility] psychiatrist or backed up now in your booking into 2025 for new patient appointments. documented in this encounter Plan of Treatment Not on file documented as of this encounter Visit Diagnoses Not on filedocumented in this encounter Care Teams Computer Networker Relationship Specialty Start Date End Date Nguyen Celaya DO [address] [place] [address] PCP - General Family Medicine 10/31/24 documented as of this encounter
--- OUTSIDE RECORDS SUMMARY | 2025-02-12 00:02 | XMS_ITS | Clinical Summary ---
Author Organization [facility] [address] Address [address] [place] [address] Care Team Providers Care Gta Name Role Phone Nguyen Celaya Primary Care Provider [phone] Allergies No known active allergies Medications buprenorphine-naloxone (SUBOXONE) 8-[address] 1 Film under the tongue 025 Active melatonin 5 mg tablet 1 tablet (5 mg total) nightly Active diphenhydrAMINE 25 mg capsule Take 1 tablet/caps ule (25 mg total) by mouth nightly as needed for itching Active cyclobenzaprine (FLEXERIL) 10 mg tabletIndications:Lumb ar spondylosis,Sciatica of right side Take 1 tablet (10 mg total) by mouth nightly as needed for muscle spasms 30 tablet 5 025 Active levothyroxine (Euthyrox) 200 mcg tabletIndications:Post operative hypothyroidism Take 1 tablet (200 mcg total) by mouth 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 90 tablet 025 2025 Active rosuvastatin (CRESTOR) 10 mg tabletIndications:Pure hypercholesterolemia Take 1 tablet (10 mg total) by mouth nightly 90 tablet 1 025 2025 Active ondansetron ODT (ZOFRAN-ODT) 4 mg disintegrating tabletIndications:Naus ea Take 1 tablet (4 mg total) by mouth every 8 (eight) hours as needed for nausea or vomiting 20 tablet 05/12/2 025 Active polyethylene glycol 236-22.74-6.74 -5.86 gram solution TAKE 4000ML BY MOUTH A ONE TIME DOSE Active busPIRone (BUSPAR) 5 mg tablet Take 1 tablet (5 mg total) by mouth daily 90 tablet 1 025 2025 Active FLUoxetine (PROzac) 20 mg capsule Take 1 capsule (20 mg total) by mouth daily 90 capsule 1 025 2025 Active hydrOXYzine (ATARAX) 50 mg tabletIndications:anxi ety Take 1 tablet (50 mg total) by mouth every 8 (eight) hours as needed for anxiety 90 tablet 5 025 2025 Active QUEtiapine (SEROquel) 100 mg tablet Take 1 tablet (100 mg total) by mouth 2 (two) times a day 180 tablet 1 025 2025 Active gabapentin (NEURONTIN) 300 mg capsuleIndications:Lum bar spondylosis,Sciatica of right side TAKE 3 CAPSULES BY MOUTH NIGHTLY 270 capsule Active gabapentin (NEURONTIN) 300 mg capsuleIndications:Lum bar spondylosis,Sciatica of right side Take 3 capsules (900 mg total) by mouth nightly 270 capsule 025 2024 Discontinued Active Problems Problem Noted Date Diagnosed Date Gastroesophageal reflux disease without esophagi tis 11/09/2024 Screening for colon cancer 11/06/2024 Postoperative hypothyroidism 10/31/2024 Sciatica of right side 10/31/2024 Lumbar spondylosis 10/31/2024 Resolved Problems Problem Noted Date Diagnosed Date Resolved Date Screening for colon cancer 11/06/2024 0 11/09/2024 Encounters Date Type Department Care Team Description 02/11/2025 Telephone [facility] [address] [place] [address] Nguyen Celaya DO 11/28/2024 Telephone [facility] at [place] [address] [place] [id number] Nguyen Celaya DO Medical Question/Miscellan eous 11/21/2024 Results Follow-Up [facility] G[facility]ology at [place] [id number] [place] [address] Terrance Bob MD Surgical pathology 11/15/2024 10:05 AM CDT Anesthesia Event [facility] [address] [place] [address] Royce Espinoza MD 11/15/2024 9:30 AM CDT - 11/15/2024 10:00 AM CDT Surgery [facility] [address] [place] [address] Terrance Bob MD COLON REMOVAL SNARE 11/15/2024 8:20 AM CDT - 11/15/2024 11:25 AM CDT Hospital Encounter [facility] [address] [place] [address] Terrance Bob MD Screening for colon cancer Discharge Disposition: Discharge to home or self care from Last 3 Months Immunizations Immunization Administration Dates Next Due Influenza, Unspecified 07/28/2024 Tdap 07/28/2024 Surgical History Surgery Date Site/Laterality Comments HYSTERECTOMY 06/27/2014 - 06/26/2015 ovaries intact LIVER RESECTION 06/27/2004 - 06/26/2005 THYROID SURGERY 06/27/2003 - 06/26/2004 thyroidectomy Medical History Medical History Date Comments Thyroid cancer (HCC) 2003 Liver cancer (HCC) 2004 Uterine cancer (HCC) 2014 Asthma pt denies Anxiety Depression Pericarditis Osteoarthritis of lumbar spine Lumbar spondylosis PONV (postoperative nausea and vomiting) History of narcotic addiction (HCC) Family History Medical History Relation Name Comments Sudden Cardiac Father Colon cancer Maternal Grandmother Sudden Cardiac Maternal Grandmother No Known Problems Mother Colon cancer Paternal Grandfather Relation Name Status Comments Father (Age 30's) Maternal Grandmother Mother Alive Paternal Grandfather Social History Tobacco Use Types Packs/Day Years Used Date Smoking Tobacco: Former Cigarettes Q uit: 08/2019 Smokeless Tobacco: Never Tobacco Cessation:Counseling Given: Not Answered Alcohol Use Standard Drinks/Week Comments Yes 3 [...] on file Legal Sex Female 1:00 AM 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[employer] Gender Identity Not on file Sexual Orientation Not on file Obstetrics History Last Filed Vital Signs Vital Sign Reading Time Taken Comments Blood Pressure 115/61 11/15/2024 10:55 AM CDT Pulse 67 11/15/2024 10:55 AM CDT Temperature 36.6 C (97.8 F) 11/15/2024 10:40 AM CDT Respiratory Rate 17 11/15/2024 10:55 AM CDT Oxygen Saturation 97% 11/15/2024 10:55 AM CDT Inhaled Oxygen Concentration - - Weight 92.7 kg (204 lb 6.4 oz) 10/31/2024 1:58 P M CDT Height 169.6 cm (5' 6.78) 10/31/2024 1:58 PM CD T Body Mass Index 32.22 10/31/2024 1:58 PM CDT Plan of Treatment Health Maintenance Due Date Last Done Comments Breast Cancer Screening-Mammogram 1975 Influenza Vaccine (#1) 2025 07/28/2024 Depression Screening 10/31/2025 10/31/2024 Regular Well Visit/Exam 18-64 10/31/2025 10/31/2024 Covid-19 Vaccine (2023-2 5 season) 2026 09/15/2020, 07/31/2020 Postponed from 02/26/2024 (Patient declined, but will receive in the future) Zoster Vaccine (1 of 2) 01/17/2026 Post poned from 2023 (Insurance / Financial) Colon Cancer Screening-Colonoscopy 11/16/2027 11/15/2024 DTaP/Tdap/Td Vaccine (2 - Td or Tdap) 07/28/2034 07/28/2024 Hepatitis B Screening Completed 10/31/2024 Hepatitis C Screening Completed 10/31/2024 Pneumococcal vaccine <65 Aged Out No longer eligible based on patient's age to complete this topic Procedures Procedure Name Priority Date/Time Associated Diagnosis Comments SURGICAL PATHOLOGY Routine 11/15/2024 10 :22 AM CDT Screening for colon cancer COLON REMOVAL SNARE 11/15/2024 9 :52 AM CDT Screening for colon cancer COLONOSCOPY 11/15/2024 9:50 AM CDT HEPATITIS C ANTIBODY Routine 10/31/2024 3:00 PM CDT Need for hepatitis C screening test from Last 3 Months or Most Recently Relevant to Health Maintenance Results * Surgical pathology (11/15/2024 10:22 AM CDT) Tissue (Polyp(s), colon/colorectal, esophageal, gastric) 11/15/2024 10:22 AM CDT Comment:Hot snare Narrative PATHOLOGY [facility] - 11/20/2024 3:05 PM CDT [facility] Department of Pathology [address] [place] [address] Note to Patients: This report may contain a detailed description of human tissue sent by a health care provider to the laboratory for pathologic evaluation. The content of this report is essential for diagnosis and may provide important critical findings. This information may be unfamiliar to patients to review without a medical professional present. It is advised that the patient review this report in the presence of a health care provider who can answer questions and explain the details. Final Report Patient Name: HIRA MORTENSEN : 1975 (Age: 49) Gender: F Address: [address] [place], [place] [id number] Hospital #: [id number] Service: Gastro Location: Patient Type: [facility] OUTPAT[facility] Taken: 11/15/2024 Received: 11/15/2024 Accessioned: 11/15/2024 Reported: 11/20/2024 Physician(s): Marlee Pascal D.O. Diagnosis: A. Large bowel, cecum, biopsy: - Polypoid mucosa with no histopathologic abnormality Jonatan Bunn MD PhD Report Electronically Reviewed and Signed Out By Jonatan Bunn MD PhD 11/20/2024 15:05:39 Specimen(s) Received: A: cecal polypectomy Microscopic Description: Multiple deeper levels examined. Multiple deeper levels examined. Clinical History: The patient is a 49-year-old woman presenting for colon cancer screening. Operative procedure: Colonoscopy with biopsy. Gross Description Received in formalin, labeled with the patient s identifiers and cecal polypectomy and consists of two singh tissue fragments admixed with debris, measuring 0.3 cm and 0.4 cm. Entirely submitted. Labeled A1. Jar 0. [email or web address]/11/15/2024 13:57 JOSEPH Issa, PA (ASCP) Microscopic slide review and interpretation for this case was performed at [facility], Department of Surgical Pathology, [address] [id number], [place] [address] CLIA # [id number] us Terrance Bob MD LAB PATHOLOGY ORDERABLES Final R esult PATHOLOGY [facility] * Colonoscopy (11/15/2024 9:50 AM CDT) Anatomical Region Laterality Modality Other Narrative Procedure Note Terrance Bob MD - 11/15/2024 9:50 AM CDT [facility] GI ENDOSCOPY Patient Name: Hira Mortensen Procedure Date: 11/15/2024 9:50 AM Date of : 1975 Admit Type: Outpatient Age: 49 Gender: Female Attending MD: Terrance Bob M.D. Room: [facility] ENDOSCOPY ROOM 03 Note Status: Finalized Procedure: Colonoscopy Indications: Screening for colorectal malignant neoplasm, Family history of colon cancer Referring MD: Providers: Terrance Bob M.D. Medicines: Monitored Anesthesia Care Complications: No immediate complications. Estimated Blood Loss: Estimated blood loss: none. Procedure: Pre-Anesthesia Assessment: - Prior to the procedure, a History and Physicalwas performed, and patient medications and allergieswere reviewed. The risks and benefits of the procedureand the sedation options and risks were discussed withthe patient. All questions were answered and informed consent was obtained. Patient identification and proposed procedure were verified. After reviewingthe risks and benefits, the patient was deemed in satisfactory condition to undergo the procedure.The anesthesia plan was to use monitored anesthesiacare (MAC). Immediately prior to administration of medications, the patient was re-assessed foradequacy to receive sedatives. The heart rate, respiratory rate, oxygen saturations, blood pressure, adequacyof pulmonary ventilation, and response to care were monitored throughout the procedure. The physical status of the patient was re-assessed after the procedure. The benefits, risks and alternatives of theprocedure and sedation were discussed and informed consentwas obtained. All questions were answered. Please referto the signed informed consent document in the medical record. The scope was passed under direct vision.The Colonoscope was introduced through the anus and advanced to the cecum, identified by appendiceal orifice and ileocecal valve. The colonoscopy was performed without difficulty. The patient tolerated the procedure well. The quality of the bowel preparation was good. Scope withdrawal time was 17 minutes. Prep was administered in a split dose. Findings: The perianal and digital rectal examinations were normal. A 10 mm polyp was found in the cecum. The polyp was sessile. Thepolyp was removed with a hot snare. Resection and retrieval werecomplete. Scattered medium-mouthed diverticula were found in the sigmoid colonand descending colon. Non-bleeding internal hemorrhoids were found during retroflexion. The hemorrhoids were small. The left colon was moderately tortuous. The exam was otherwise without abnormality. Impression: - One 10 mm polyp in the cecum, removed with a hot snare. Resected and retrieved. - Diverticulosis in the sigmoid colon and in the descending colon. - Non-bleeding internal hemorrhoids. - Tortuous colon. - The examination was otherwise normal. Recommendation: - Patient has a contact number available for emergencies. The signs and symptoms of potential delayed complications were discussed with thepatient. Return to normal activities tomorrow. Written discharge instructions were provided to thepatient. - High fiber diet. - Continue present medications. - Await pathology results. - Repeat colonoscopy in 3 years for surveillance. Terrance Bob M.D. Terrance Bob M.D. 11/15/2024 10:40:03 AM . Number of Addenda: 0 Note Initiated On: 11/15/2024 9:50 AM Recognized by the [employer] for promoting quality in endoscopy us Terrance Bob MD ENDOSCOPY PROCEDURES Final Resul t * Hepatitis C antibody Blood (10/31/2024 3:00 PM CDT) Hep C Ab Nonreactive Nonreactive Comment: Antibodies to HCV not detected. Does NOT exclude the possibility of recent exposure to HCV. Current interpretive data was last revised on 22 Interpretive Data Nonreactive: Antibodies to HCV not detected. Does NOT exclude the possibility of recent exposure to HCV. Equivocal: Equivocal for HCV antibodies. Supplemental molecular testing will be automatically performed to determine infection status in accordance with current CDC screening recommendations. Reactive: Positive for HCV antibodies. This may represent current or past HCV infection. Supplemental molecular testing will be automatically performed to determine current infection status in accordance with current CDC screening recommendations. Interpretive data was last revised on 2019. Blood 10/31/2024 3:00 PM CDT 10/31/2024 3:25 PM CDT us Nguyen Celaya DO LAB MICROBIOLOGY - GENERAL ORDERABLES Final Result [facility] [address] [place] [address] from Last 3 Months or Most Recently Relevant to Health Maintenance Insurance [employer] Address: [facility] [id number] [place] [address] [facility] [employer] Address[facility] [id number] [address] Care Teams Gta Relationship Specialty Start Date End Date Nguyen Celaya DO [address] [place] [address] PCP - General Family Medicine 10/31/24
[2025-02-12 00:21] LABS: Troponin I < 0.012 ng/mL (0.000-0.034)
== END 2025-02-12 00:25 | disposition left against medical advice (07) ==
PROVIDERS: Emergency Provider Emergency Medicine; PCP Family Medicine
DX: R06.02 Shortness of breath (principal)
CPT/HCPCS: 36415; 71046; 80053; 83690; 84484; 85025; 85610; 85730; 93005; 99199

== ENCOUNTER 2025-04-03 11:34 | Emergency (ER) | payer SELFPAY ==
[2025-04-03 11:47] VITALS: BP 109/61; PULSE 81; RESP 18; TEMP 36.9; O2SAT 99
--- NOTE | 2025-04-03 12:07 | ED.EYEPROB ---
HPI - Eye Problem General Chief complaint: Eye Problems Stated complaint: left eye Time Seen by Provider: 04/03/25 11:50 Source: patient and RN notes reviewed Mode of arrival: ambulatory Limitations: no limitations History of Present Illness HPI Narrative: 49-year-old female presents Express Care complaining of left eye per over approximately 2-3 days. Patient has noticed her eyes were more watery in usual 2 days ago, she reports a history of allergies and takes allergy medications for it. Says since she noticed redness and swelling around her left eye in, increased watery eye drainage, and eye redness. Patient denies any eye pain, pain with eye movement, vision problems, nausea, vomiting, headaches, upper respiratory symptoms, or any other symptoms. Patient denies any mucopurulent drainage. Patient says she has recent treated for sinus infection approximately 1 month ago with improvement of symptoms. Patient has a history of uterine, liver, and thyroid cancer. Patient also has a history of fibromyalgia. Patient is not currently on any chemotherapy Related Data Home Medications ?Medication ?Instructions ?Recorded ?Confirmed ?Last Taken ?Type melatonin 10 mg tablet 10 mg PO HS PRN Insomnia 03/10/20 04/03/25 Unknown History buprenorphine 8 mg-naloxone 2 mg film 04/03/25 Unknown History sublingual film cyclobenzaprine 10 mg tablet mg 04/03/25 Unknown History hydroxyzine HCl 50 mg tablet mg 04/03/25 Unknown History rosuvastatin 10 mg tablet mg 04/03/25 Unknown History Allergies Allergy/AdvReac Type Severity Reaction Status Date / Time No Known Allergies Allergy Verified 04/03/25 11:37 Review of Systems Review of Systems: CONSTITUTIONAL: Denies fever, chills, or sweats. EYES: Denies visual changes, pain with eye movement, eye pain,. Positive for left eyelid swelling, redness, drainage ENT: Denies rhinorrhea, congestion, sore throat, or otalgia. CARDIOVASCULAR: Denies chest pain, palpitations, or edema. RESPIRATORY: Denies cough or dyspnea. GASTROINTESTINAL: Denies abdominal pain, nausea, vomiting, or diarrhea. GENITOURINARY: Denies dysuria or hematuria. SKIN: Denies rash or itching. MUSCULOSKELETAL: Denies back pain, joint pain, or myalgia. NEUROLOGIC: Denies headache, numbness, or weakness. PSYCHIATRIC: Denies anxiety or depression. All other systems reviewed are negative, except as documented in HPI. [facility] Past Medical History Medical History Heart murmur Cancer Liver/thyroid/uterine Depression Hypoglycemia Endocrine disorder Thyroid mass Gastrointestinal disorder Mass on liver, thyroid Bronchitis Asthma Viral meningitis CVA (cerebral vascular accident) Back pain Chronic insomnia Eustachian salpingitis, acute Anxiety disorder Primary generalized (osteo)arthritis Arthralgia Surgical History Surgical History H/O resection of liver H/O thyroidectomy H/O: hysterectomy Family History Family History Mother Patient's mother is in good health Rheumatoid arthritis Father Patient's father is Grandparent Carcinoma of colon Family history of coronary artery disease, Onset Age: 71 Rheumatoid arthritis Other Cerebrovascular accident Hypertension Social History Social History Social History: Smoking packs per day: 0 Smoking cigarettes per day: 0.0 Years smoked: 30 Smoking pack-years: 0.00 Smoking status: Former smoker Tobacco type: cigarettes Second hand tobacco smoke exposure: Yes Smoking end date: 10/25/19 Alcohol intake: current Alcohol use details: Pt have one glass of wine, once a month. Substance use: never Substance use type: does not use Living arrangements: with family Occupation/Education: occupation Gender identity (if verbalized by the patient): Female Sexual Orientation (if Verbalized by the Patient): Straight or Heterosexual Spiritual care concerns: No Comments At the time of my signature, I reviewed and agree with the nursing past medical, surgical, social, and family history. There is no relevant family history pertinent to the patient complaint. Exam Narrative: GENERAL: This is a well-nourished, well-developed adult, in no apparent distress. They are non ill-appearing, nontoxic appearing. HEAD: normocephalic, atraumatic. EYES: Sclera clear/white. Right Conjunctiva normal. Left conjunctiva injected. Watery discharge present. Vision is grossly intact. Extraocular movements intact. Left periorbital region erythematous, warm to touch, mild tenderness. No area of fluctuance, no induration. Left periorbital region normal. Pupils PERRLA. EARS: External ears normal, auditory canals clear and without drainage, TMs normal without perforation. Hearing grossly intact. NOSE: External nose normal with no obvious nasal discharge, nasal turbinates without redness, no rhinorrhea. THROAT: Mucous membranes moist, posterior pharynx clear, without erythema or swelling. Uvula midline. Postnasal drip present. NECK: Neck supple, non-tender without lymphadenopathy, masses or thyromegaly. CARDIOVASCULAR: Regular rate and rhythm without murmurs, gallops, or rubs. RESPIRATORY: Clear to auscultation. Breath sounds equal bilaterally. No wheezes, rales, or rhonchi. SKIN: warm, Dry, intact with no suspicious lesions or rash, good texture and turgor. NEURO: awake, alert, and oriented to person, place and time. There were no obvious focal neurologic abnormalities. EXTREMITIES: No joint tenderness, effusion, or edema noted. BACK: Nontender without deformity. No CVA tenderness. Course Course Emergency Course: Portions of this record may have been created with voice recognition software Level of Care: Express Care Visit Vital Signs Vital signs: Vital Signs Temperature 98.4 F 04/03/25 11:47 Pulse Rate 81 04/03/25 11:47 Respiratory Rate 18 04/03/25 11:47 Blood Pressure 109/61 04/03/25 11:47 Pulse Oximetry 99 04/03/25 11:47 Oxygen Delivery Room Air 04/03/25 11:47 Temperature 98.4 F 04/03/25 11:47 Pulse Rate 81 04/03/25 11:47 Respiratory Rate 18 04/03/25 11:47 Blood Pressure 109/61 04/03/25 11:47 Pulse Oximetry 99 04/03/25 11:47 Oxygen Delivery Room Air 04/03/25 11:47 Reviewed MDM - Eye Problem MDM Narrative Medical decision making narrative: Appears likely patient has left-sided periorbital cellulitis. No evidence of orbital cellulitis. No eye pain, visual acuity grossly intact, no pain with eye movement. No proptosis or chemosis. Patient does wear glasses but only wears it when she drives she states. Patient denies any contact use. Given the injected conjunctiva will also treat for conjunctivitis. Patient was on Augmentin within the last month for sinusitis. Will treat with cefdinir along with polymyxin eye drops. Advised close follow-up with PCP or casing cooker. Strict ER precautions discussed with patient specially if symptoms not improve in 2 days, worsening redness, swelling, eye pain, pain with eye movement, vision changes, fevers, nausea, vomiting, severe headaches, or any serious concerns. Discussed physical exam findings. Advised supportive measures and signs/symptoms to go to the ER. Pt is appropriate for outpt treatment and f/u. Differential Diagnosis Differential diagnosis: Likely periorbital cellulitis and other (Orbital cellulitis, conjunctivitis, allergic conjunctivitis) Critical Care Time Critical Care Time Critical Care Time: No Discharge Plan Discharge Clinical Impression: Periorbital cellulitis of left eye Patient Disposition: Home Condition: Stable Instructions: Antibiotic Form, Orbital Cellulitis (ED) Additional Instructions: Take cefdinir as directed. Finish the course completely even if you start to feel better. Use eyedrops as directed. Tylenol or ibuprofen as needed for pain or fevers. Follow instructions on the bottle. Please have close follow-up with her PCP in 2-3 days for re-evaluation. Please go to the ER symptoms are not improving after 2 days of treatment, worsening redness, swelling, pain, vision changes, severe eye pain with movement, headaches, nausea, vomiting or any serious concerns. Patient Language: Georgian Prescriptions: New cefdinir 300 mg capsule 300 mg PO Q12H 7 Days Qty: 14 0RF polymyxin B sulf-trimethoprim 10,000 unit- 1 mg/mL drops 1 drp LEFT EYE Q3H 7 Days Qty: 10 0RF Rx Instructions: while awake; do not exceed 6 doses in 24 hours No Action cyclobenzaprine 10 mg tablet hydroxyzine HCl 50 mg tablet rosuvastatin 10 mg tablet buprenorphine-naloxone 8-2 mg film omeprazole 20 mg capsule,delayed release(DR/EC) 20 mg PO DAILY Qty: 90 1RF fluoxetine 20 mg capsule See Rx Instructions .ROUTE .COMPLEX Qty: 90 1RF Dose Instruction: TAKE 1 CAPSULE BY MOUTH IN THE EVENING Rx Instructions: TAKE 1 CAPSULE BY MOUTH IN THE EVENING melatonin 10 mg Tablet 10 mg PO HS PRN (Reason: Insomnia) buspirone 5 mg tablet See Rx Instructions .ROUTE .COMPLEX Qty: 60 2RF Dose Instruction: Take 1 tablet by mouth twice daily Rx Instructions: Take 1 tablet by mouth twice daily gabapentin 300 mg capsule See Rx Instructions .ROUTE .COMPLEX Qty: 90 1RF Dose Instruction: TAKE 1 CAPSULE BY MOUTH IN THE MORNING AND 2 AT BEDTIME Rx Instructions: TAKE 1 CAPSULE BY MOUTH IN THE MORNING AND 2 AT BEDTIME quetiapine 100 mg tablet See Rx Instructions .ROUTE .COMPLEX Qty: 90 0RF Dose Instruction: TAKE 1 TABLET BY MOUTH ONCE DAILY AT BEDTIME Rx Instructions: TAKE 1 TABLET BY MOUTH ONCE DAILY AT BEDTIME levothyroxine 150 mcg tablet See Rx Instructions .ROUTE .COMPLEX Qty: 90 1RF Dose Instruction: Take 1 tablet by mouth once daily Rx Instructions: Take 1 tablet by mouth once daily Follow-up/Referrals: Lito Gregg MD [Primary Care Provider, Family Practice] Time of Disposition: 12:03
== END 2025-04-03 12:04 | disposition home or self-care (01) ==
PROVIDERS: PCP Family Medicine
DX: H05.012 Cellulitis of left orbit (principal); Z87.891 Personal history of nicotine dependence; R01.1 Cardiac murmur, unspecified; J45.909 Unspecified asthma, uncomplicated; M15.0 Primary generalized (osteo)arthritis; E89.0 Postprocedural hypothyroidism; F41.9 Anxiety disorder, unspecified; F32.A Depression, unspecified; Z85.05 Personal history of malignant neoplasm of liver; Z85.850 Personal history of malignant neoplasm of thyroid; Z85.42 Personal history of malignant neoplasm of other parts of uterus
CPT/HCPCS: 99213; G0463